=== PATIENT | male | born 1990 | race Caucasian/White ===

== ENCOUNTER → 2021-09-30 12:02 | Outpatient (CLI) | payer OTHER, SELFPAY ==
[2021-09-30 18:32] LABS: Add Manual Diff / Slide Review NO; Basophils Absolute Auto 0 /uL (0-100); Basophils Percent Auto 0.4 % (0-2); Eosinophils Absolute Auto 0 /uL (0-450); Eosinophils Percent Auto 0.2 % (2-4); Hematocrit 34.9 % (41-53); Hemoglobin 12.1 g/dL (13.5-17.5); Lymphocytes Absolute Auto 1200 /uL (1100-4500); Lymphocytes Percent Auto 37.1 % (25-40); Mean Corpuscular HGB Conc 34.5 % (30-36); Mean Corpuscular Volume 86.7 fL (80-100); Monocytes Absolute Auto 300 /uL (0-900); Monocytes Percent Auto 8.3 % (3-14); Neutrophils Absolute Auto 1800 /uL (1500-7000); Platelet Count 249 X10^3/uL (150-400); Red Blood Cell Count 4.03 X10^6/uL (4.5-5.9); Red Cell Distribution Width 14.2 % (11.6-14.8); White Blood Cell Count 3.3 X10^3/uL (4.5-11.0)
[2021-09-30 18:42] LABS: Alanine Aminotransferase 18 IU/L (<50); Albumin 4.1 g/dL (3.5-5.0); Albumin Globulin Ratio 1.5 (1.0-2.8); Alkaline Phosphatase 67 U/L (38-126); Aspartate Aminotransferase 29 IU/L (17-59); BUN Creatinine Ratio 9.3 (6-22); Bilirubin Total 0.2 mg/dL (0.2-1.3); Blood Urea Nitrogen 7 mg/dL (9-20); Calcium 8.7 mg/dL (8.4-10.2); Carbon Dioxide 30 mmol/L (22-32); Chloride 101 mmol/L (98-107); Estimated Glomerular Filt Rate > 60 mL/min (>60); Globulin 2.8 g/dL (1.7-4.1); Glucose 87 mg/dL (70-100); HEMOLYSIS < 15 (0-50); Potassium 4.1 mmol/L (3.4-5.1); Sodium 136 mmol/L (137-145); Total Protein 6.9 g/dL (6.3-8.2)
[2021-09-30 18:49] LABS: Erythrocyte Sedimentation Rate 28 MM/HR (0-15)
[2021-09-30 19:17] LABS: Ferritin 30 ng/mL (18-464); High Sensitivity CRP - Cardiac > 15.0 mg/L (1.0-3.0)
[2021-09-30 19:25] LABS: C-Reactive Protein Quant 3.4 mg/dL (<1.0)
== END ==
PROVIDERS: PCP Family Medicine; Visit Provider Naturopath
DX: L40.59 Other psoriatic arthropathy (principal); M45.9 Ankylosing spondylitis of unspecified sites in spine
CPT/HCPCS: 80053; 82728; 83090; 85025; 85651; 86140

== ENCOUNTER → 2023-05-25 10:42 | Outpatient (CLI) | payer OTHER, SELFPAY ==
[2023-05-25 11:59] LABS: Add Manual Diff / Slide Review NO; Basophils Absolute Auto 0 /uL (0-100); Basophils Percent Auto 0.5 % (0-2); Eosinophils Absolute Auto 100 /uL (0-450); Hematocrit 39.8 % (41-53); Hemoglobin 13.8 g/dL (13.5-17.5); Lymphocytes Absolute Auto 2300 /uL (1100-4500); Lymphocytes Percent Auto 28.8 % (25-40); Mean Corpuscular HGB Conc 34.8 % (30-36); Mean Corpuscular Hemoglobin 30.3 PG (26-34); Mean Corpuscular Volume 87.1 fL (80-100); Monocytes Absolute Auto 600 /uL (0-900); Monocytes Percent Auto 7.7 % (3-14); Neutrophils Absolute Auto 5000 /uL (1500-7000); Platelet Count 354 X10^3/uL (150-400); Red Blood Cell Count 4.57 X10^6/uL (4.5-5.9)
[2023-05-25 12:19] LABS: HEMOLYSIS < 15 (0-50); Iron 92 ug/dL (49-181)
[2023-05-25 12:20] LABS: Alanine Aminotransferase 17 IU/L (<50); Albumin 4.7 g/dL (3.5-5.0); Albumin Globulin Ratio 1.2 (1.0-2.8); Alkaline Phosphatase 66 U/L (38-126); BUN Creatinine Ratio 16.1 (6-22); Bilirubin Total 0.5 mg/dL (0.2-1.3); Blood Urea Nitrogen 10 mg/dL (9-20); Calcium 10.1 mg/dL (8.4-10.2); Carbon Dioxide 31 mmol/L (22-32); Chloride 98 mmol/L (98-107); Estimated Glomerular Filt Rate > 60 mL/min (>60); Globulin 3.9 g/dL (1.7-4.1); Glucose 95 mg/dL (70-100); HEMOLYSIS < 15 (0-50); Potassium 4.4 mmol/L (3.4-5.1); Sodium 138 mmol/L (137-145); Total Protein 8.6 g/dL (6.3-8.2)
[2023-05-25 12:30] LABS: Percent Iron Saturation 26 % (20-50); Total Iron Binding Capacity 356 ug/dL (261-462); Transferrin 296 mg/dL (206-381)
[2023-05-25 12:49] LABS: Erythrocyte Sedimentation Rate 21 MM/HR (0-15)
[2023-05-25 12:52] LABS: Ferritin 12 ng/mL (18-464)
[2023-05-25 22:08] LABS: High Sensitivity CRP - Cardiac 13.8 mg/L (1.0-3.0)
[2023-05-27 15:50] LABS: Aspartate Aminotransferase 26 IU/L (17-59)
== END ==
LOC: LAB 10:45
PROVIDERS: PCP Naturopath; Referring Provider Naturopath; Visit Provider Naturopath
DX: L40.59 Other psoriatic arthropathy (principal); M45.9 Ankylosing spondylitis of unspecified sites in spine; D63.8 Anemia in other chronic diseases classified elsewhere
CPT/HCPCS: 36415; 80053; 82728; 83540; 83550; 85025; 85651; 86140

== ENCOUNTER → 2023-09-13 14:42 | Outpatient (CLI) | payer OTHER, SELFPAY ==
[2023-09-15 03:54] LABS: Hepatitis B Core Antibody Negative (Negative)
[2023-09-15 17:10] LABS: Hepatitis B Surface Antigen NEGATIVE s/c (NEGATIVE)
[2023-09-15 17:28] LABS: Hep C Virus Ab w/Reflex Quant NEGATIVE s/c (NEGATIVE)
[2023-09-16 04:38] LABS: Hepatitis B Surf Ab Qualitativ Non Reactive (.)
[2023-09-16 15:40] LABS: QuantiFERON Mitogen Value 8.79 IU/mL (.); QuantiFERON Nil Value 0.02 IU/mL (.); QuantiFERON TB Gold Plus Negative (Negative); QuantiFERON TB1 Ag Value 0.01 IU/mL (.); QuantiFERON TB2 Ag Value 0.02 IU/mL (.)
== END ==
PROVIDERS: PCP Naturopath; Visit Provider Internal Medicine Rheumatology
DX: M45.9 Ankylosing spondylitis of unspecified sites in spine (principal); H20.9 Unspecified iridocyclitis
CPT/HCPCS: 86480; 86704; 86706; 86803; 87340